=== PATIENT | female | born 1965 | race Caucasian/White ===

== ENCOUNTER → 2016-03-25 | Day surgery (SDC) | payer MEDICARE ==
[~2016-03-25] VITALS: Ht 167.6 cm; Wt 95.0 kg
[~2016-03-25] MED LIST: ACYC800T PO; ALIG4CAP PO; ASCO500T PO; ASPI81TA81 PO; BIOT1000 PO; BUPIVACAINE HCL PF 0.5% 30 ML VIAL ONE; BUPIVACAINE/EPINEPHRINE 0.5% PF 30 ML VIAL ONE; CLIN1CAP6 PO; CYAN1000P SQ; CYTO5TAB PO; DEXAMETHASONE SOD PHOS 4 MG/ML VIAL ONE; DICL75TA PO; ERGO1CAP10 PO; ESTR2MIS VAGINAL; FAMOTIDINE 20 MG/2 ML VIAL ONE; FEXO1TAB97 PO; LACTATED RINGER'S 1000 ML INJ 1,000 ML ONE; LEVO-86 PO; LISI-515 PO; MEPERIDINE HCL 50 MG/ML VIAL ONE; MIDAZOLAM HCL 2 MG/2 ML VIAL ONE; MILN50 PO; OMEGCAP19 PO; OXYC1TAB36 PO; OXYC20TA17 PO; PHEN37.54 PO; PRIL20CA9 PO; PROPOFOL 200 MG/20 ML AMP IV ONE; SODIUM CHLORIDE 0.9% INJ 100 ML ONE; SODIUM CHLORIDE 0.9% INJ 50 ML ONE; TOPA25TA8 PO; VANCOMYCIN 500 MG VIAL ONE; ceFAZolin INJ 1,000 MG VIAL ONE; diphenhydrAMINE HCL 50 MG/ML VIAL ONE
[2016-03-25 12:26] VITALS: BP 130/76; PULSE 70; RESP 16; TEMP 98.2; O2SAT 99
[2016-03-25 17:05] VITALS: BP 122/76; PULSE 84; RESP 16; TEMP 98; O2SAT 96
--- NOTE | 2016-03-26 09:31 | MP ---
cc: VIN TOLEDO M.D. DATE OF SURGERY: 03/25/2015 DATE OF : 1965 PROCEDURE: Removal of occipital nerve stimulating electrodes times two. PREOPERATIVE DIAGNOSIS: Migration of occipital nerve stimulating electrodes. HISTORY: This the patient had occipital nerve electrodes implanted in October 2015. Following that surgery. She healed up well and was doing well. Then in January Three months after the original implant. The patient stumbled and fell, then shortly thereafter the skin over one of the electrodes began to erode and eventually the electrode was visible through a small opening in the patient's skin and therefore we bring her today to the operating room to remove the electrodes. PROCEDURE NOTE IV was started, the holding area the patient was given IV vancomycin the surgical site was prepped and the consent forms were signed. The patient was taken to the operating room, placed in the prone position. All pressure points were checked and padded and she was sedated by anesthesia. Then fluoroscopy was used briefly to visualize the underlying electrodes and the skin was marked over the electrodes. Then her occipital area and posterior cervical area was prepped with Chloraprep and draped with sterile drapes two areas were infiltrated, the area at the base of the occipital protuberance and then an area in the mid cervical region. The mid cervical region was opened and blunt and sharp dissection was used to isolate the distal portion of the stimulating electrodes and this was cut. Then, the suboccipital area was opened. The anchoring devices were freed from the underlying tissue and the electrodes were removed in their entirety. Then both incisions were irrigated with Betadine and debrided and closed using 3-0 Monocryl in the subcuticular tissue and 3-0 nylon on the skin incisions were covered with sterile adhesive dressings and the patient was taken to the recovery room with stable vital signs neurologically intact. WMD KOFFI Rivera/nixno /3:55 PM /9:27 AM
== END | disposition home or self-care (01) ==
LOC: CSDC 11:54 → EDSTATUS 14:00
PROVIDERS: ATTEND Pain Medicine Interventional Pain Medicine
DX: T81.89XA Other complications of procedures, not elsewhere classified, initial encounter (principal); W01.0XXA Fall on same level from slipping, tripping and stumbling without subsequent striking against object, initial encounter
CPT/HCPCS: 00300; 64585; 76000; 87015; 87070; 87102; 87116; 87205; 87206; J0690; J1100; J1200; J2175; J2250; J3010; J3370; J7120

== ENCOUNTER → 2016-10-28 | Day surgery (SDC) | payer MEDICARE ==
[~2016-10-28] MED LIST changes: +BERBERINE PO; -BUPIVACAINE/EPINEPHRINE 0.5% PF 30 ML VIAL ONE; +CURAMED PO; -DEXAMETHASONE SOD PHOS 4 MG/ML VIAL ONE; -FAMOTIDINE 20 MG/2 ML VIAL ONE; -LACTATED RINGER'S 1000 ML INJ 1,000 ML ONE; +LIOT5TAB3 PO; +LORA-400 PO; -MEPERIDINE HCL 50 MG/ML VIAL ONE; -MIDAZOLAM HCL 2 MG/2 ML VIAL ONE; +OXYC-405 PO; -SODIUM CHLORIDE 0.9% INJ 100 ML ONE; -SODIUM CHLORIDE 0.9% INJ 50 ML ONE; +TRIAMCINOLONE ACETONIDE 40 MG/ML VIAL I-ARTICULR ONE; -VANCOMYCIN 500 MG VIAL ONE; -ceFAZolin INJ 1,000 MG VIAL ONE; -diphenhydrAMINE HCL 50 MG/ML VIAL ONE; +methylPREDNISolone ACETATE 40 MG/ML VIAL I-ARTICULR ONE
--- NOTE | 2016-10-30 10:43 | M6 ---
cc: VIN DUGAN M.D. DATE: 10/28/2016 1965 PROCEDURE Fluoroscopically guided injection bilateral sacroiliac joints. History and physical was completed and signed. Consent was signed. Procedure site was marked. Medications were listed and reconciled. Pain score was recorded. Allergies were noted. Time out was taken. Fluoroscopy time was recorded where applicable. Sedation was administered or directed by Dr. Dugan. The patient was given oxygen. The patient was monitored by a registered nurse. Total procedure time was greater than 15 minutes. IV was started, blood pressure cuff, pulse oximeter and EKG were applied. The patient was placed in the prone position on a Demar table, sedated with small amounts of propofol titrated to effect. Vital signs were monitored and remained stable throughout the procedure. Sacral area was prepped with alcohol and 10% Betadine solution and draped with sterile drapes. Fluoroscopy was used shooting from medial to lateral to clearly visualize the posterior joint line of the bilateral sacroiliac joints. Separate sterile 5-inch 22-gauge spinal needles were advanced under fluoroscopic guidance into each joint. There was negative aspiration for blood or any other type of fluid. At each location the patient was given 2 mL of 0.5% Marcaine, 20 mg of Depo-Medrol, 20 mg of Kenalog. Following the procedure the patient was taken to the recovery room with stable vital signs, neurologically intact. W. MD KOFFI Gaona/SCARLETT /9:49 AM /10:36 AM
== END | disposition home or self-care (01) ==
LOC: PHSDC 08:18
PROVIDERS: ATTEND Pain Medicine Interventional Pain Medicine
DX: M53.3 Sacrococcygeal disorders, not elsewhere classified (principal); M54.5 Low back pain
CPT/HCPCS: 99152; G0260; J1030; J3301; 27096

== ENCOUNTER → 2017-01-07 | Day surgery (SDC) | payer MEDICARE ==
[~2017-01-07] MED LIST changes: -BUPIVACAINE HCL PF 0.5% 30 ML VIAL ONE; +BUPIVACAINE HCL PF 0.75% 30 ML VIAL ONE; -CLIN1CAP6 PO; -CYTO5TAB PO; +OXYC-396 PO; -OXYC20TA17 PO; -PRIL20CA9 PO; -TRIAMCINOLONE ACETONIDE 40 MG/ML VIAL I-ARTICULR ONE; +TRIAMCINOLONE ACETONIDE 40 MG/ML VIAL NERV BLOCK ONE; -methylPREDNISolone ACETATE 40 MG/ML VIAL I-ARTICULR ONE
--- NOTE | 2017-01-08 09:18 | M6 ---
cc: Hannah DUGAN DATE 01/07/2017 DATE OF 1965 PROCEDURE Fluoroscopically guided injection bilateral lumbar facet joints (bilateral L3-4, L4-5 and L5-S1 facet joints). PROCEDURE NOTE History and physical was completed and signed. Consent was signed. Procedure site was marked. Medications were listed and reconciled. Pain score was recorded. Allergies were noted. Time out was taken. Fluoroscopy time was recorded where applicable. Sedation was administered or directed by Dr. Dugan. The patient was given oxygen. The patient was monitored by a registered nurse. Total procedure time was greater than 15 minutes. IV was started, blood pressure cuff, pulse oximeter and EKG were applied. The patient was placed in the prone position on a Demar table, sedated with small amounts of propofol titrated to effect. Vital signs were monitored and remained stable throughout the procedure. The lumbar area was prepped with alcohol and 10% Betadine solution and draped with sterile drapes. Fluoroscopy was used in a Mateusz dog view to clearly visualize the bilateral lumbar facet joints at L3-4, L4-5 and L5-S1. Separate sterile 3-1/2-inch 25-gauge spinal needles were advanced into these joints under fluoroscopic guidance. There was negative aspiration for blood or any other type of fluid and at each location, the patient was given 1 mL of Marcaine 0.75% which contained 10 mg of Kenalog. Following the procedure, the patient was taken to the recovery room with stable vital signs neurologically intact. MD KOFFI Reddy/DOM /10:19 AM /9:03 AM
== END | disposition home or self-care (01) ==
LOC: PHSDC 08:58
PROVIDERS: ATTEND Pain Medicine Interventional Pain Medicine
DX: M54.5 Low back pain (principal)
CPT/HCPCS: 64493; 64494; 64495; 99152; J3301